=== PATIENT | female | born 1990 | race Caucasian/White ===

== ENCOUNTER → 2024-06-01 13:05 | Outpatient (REF) | payer OTHER, SELFPAY | LOC: HWRCS 13:05 | PROVIDERS: ATTENDING PHYSICIAN Nurse Practitioner Primary Care | DX: R01.1 Cardiac murmur, unspecified (principal) | CPT/HCPCS: 93306 ==

== ENCOUNTER → 2025-07-19 09:58 | Outpatient (REF) | payer OTHER, SELFPAY | LOC: PNTC 09:58 | PROVIDERS: ATTENDING PHYSICIAN Obstetrics & Gynecology | DX: O09.529 Supervision of elderly multigravida, unspecified trimester (principal) | CPT/HCPCS: 59025 ==

== ENCOUNTER → 2025-07-28 10:33 | Outpatient (REF) | payer OTHER, SELFPAY | LOC: PNTC 10:33 | PROVIDERS: ATTENDING PHYSICIAN Obstetrics & Gynecology | DX: O09.529 Supervision of elderly multigravida, unspecified trimester (principal) | CPT/HCPCS: 59025 ==

== ENCOUNTER → 2025-08-04 10:39 | Outpatient (REF) | payer OTHER, SELFPAY | LOC: PNTC 10:39 | PROVIDERS: ATTENDING PHYSICIAN Obstetrics & Gynecology | DX: O99.210 Obesity complicating pregnancy, unspecified trimester (principal); O09.529 Supervision of elderly multigravida, unspecified trimester | CPT/HCPCS: 59025 ==

== ENCOUNTER 2025-08-05 08:20 | Inpatient (IN) | payer OTHER, SELFPAY ==
[2025-08-05 08:29] VITALS: BP 121/66; BMI 45.5
[2025-08-05] MEDS: CYTOTEC 50 MICROGRAM VAG (09:15)
[2025-08-05 09:24] LABS: Hematocrit 33.5 % (37.0-47.0); Hemoglobin 11.4 g/dL (12.0-16.0); Mean Corp Hgb Conc. 34.0 g/dL (33.0-37.0); Mean Corpuscular Volume 87.9 fL (81.0-99.0); Nucleated Red Blood Cells % 0 %; Platelet Count 277 10^3/uL (130-400); Red Cell Dist. Width 14.0 % (11.5-14.5)
[2025-08-05] MEDS: LR 1000 IV ×2 (10:30→18:51)
[2025-08-05] MEDS: FENTANYL/BUPIVACAINE 100 EPIDURAL (19:18)
[2025-08-05] MEDS: SUBLIMAZE 100 MCG EPIDURAL (19:18)
[2025-08-05] MEDS: PITOCIN 30 UNITS/NSS 500 ML IV (20:18)
[2025-08-06 05:37] LABS: Hematocrit 30.9 % (37.0-47.0); Hemoglobin 10.5 g/dL (12.0-16.0)
[2025-08-06] MEDS: TYLENOL 650 MG PO ×3 (06:02→19:31)
[2025-08-06] MEDS: COLACE 100 MG PO ×2 (08:05→19:31)
[2025-08-06] MEDS: PRENATAL PLUS 1 TABLET PO (08:05)
[2025-08-06 13:16] LABS: Syphilis/T. pallidum Ab Reflex Negative (Negative)
[2025-08-06] MEDS: MOTRIN 600 MG PO ×2 (17:03→23:08)
[2025-08-07] MEDS: MOTRIN 600 MG PO (05:38)
[2025-08-07] MEDS: TYLENOL 650 MG PO (06:49)
[2025-08-07] MEDS: PRENATAL PLUS 1 TABLET PO (08:24)
[2025-08-07] MEDS: COLACE 100 MG PO (08:25)
== END 2025-08-07 11:53 | disposition home or self-care (01) | DRG 807 ==
LOC: LDRP 08:20
PROVIDERS: ADMITTING PHYSICIAN Obstetrics & Gynecology
PROC: 3E0P7VZ Introduction of Hormone into Female Reproductive, Via Natural or Artificial Opening (ICD-10-PCS; 2025-08-05)
PROC: 0HQ9XZZ Repair Perineum Skin, External Approach (ICD-10-PCS; 2025-08-05)
PROC: 0U7C7DJ Dilation of Cervix with Intraluminal Device, Temporary, Via Natural or Artificial Opening (ICD-10-PCS; 2025-08-05)
PROC: 10E0XZZ Delivery of Products of Conception, External Approach (ICD-10-PCS; 2025-08-05)
DX: O48.0 Post-term pregnancy (principal); Z37.0 Single live birth; Z3A.40 40 weeks gestation of pregnancy; O70.0 First degree perineal laceration during delivery; O99.214 Obesity complicating childbirth; D25.9 Leiomyoma of uterus, unspecified; O34.13 Maternal care for benign tumor of corpus uteri, third trimester; O99.284 Endocrine, nutritional and metabolic diseases complicating childbirth; E03.9 Hypothyroidism, unspecified; Z79.82 Long term (current) use of aspirin
CPT/HCPCS: 36415; 85014; 85018; 85025; 86780; 86850; 86900; 86901